=== PATIENT | female | born 1975 | race Caucasian/White ===

== ENCOUNTER 2019-03-14 09:26 | Emergency (ER) | payer OTHER ==
[2019-03-14] MEDS ORDERED: Ketorolac INJ* 30 MG/ML 1 ML VIAL IV PUSH ONE (09:50)
[2019-03-14] MEDS ORDERED: Dexamethasone IV* 4 MG/ML 1 ML (4 MG) IV SLOW PU ONE (09:50)
[2019-03-14] MEDS ORDERED: NS 0.9% 1000 ML** 1,000 ML IV ONE (09:51)
--- NOTE | 2019-03-14 09:52 | ED ---
Throat Pain/Nasal Congestion - HPI Summary HPI Summary: Patient is a 43-year-old female who presents emergency department for sore throat and fever 2 days. Patient notes nausea and ear patient pain. Pt. denies past medical history. Patient notes throat pain today is too great to speak. Patient states she is able to tolerate some liquids but it is very painful. Patient denies sick contacts. Symptoms are mild to moderate in severity. No current modifying factors. - History of Current Complaint Chief Complaint: EDThroatPain Time Seen by Provider: 03/14/19 09:38 Hx Obtained From: Patient - Allergies/Home Medications Allergies/Adverse Reactions: Allergies Allergy/AdvReac Type Severity Reaction Status Date / Time latex Allergy Airway Verified 03/14/19 09:52 Obstruction PMH/Surg Hx/FS Hx/Imm Hx Previously Healthy: Yes Infectious Disease History: No Infectious Disease History: Denies: Traveled Outside the [place] in Last 30 Days - Social History Alcohol Use: None Substance Use Type: Reports: None Smoking Status (MU): Never Smoked Tobacco Review of Systems Positive: Fever, Chills Eyes: Negative Positive: Sore Throat, Ear Ache Cardiovascular: Negative Respiratory: Negative Negative: Shortness Of Breath, Cough Positive: Nausea. Negative: Abdominal Pain, Vomiting, Diarrhea Genitourinary: Negative Skin: Negative Negative: Rash Neurological: Negative All Other Systems Reviewed And Are Negative: Yes Physical Exam Triage Information Reviewed: Yes Vital Signs On Initial Exam: Initial Vitals Temp Pulse Resp BP Pulse Ox 101.8 F 91 18 159/96 97 03/14/19 09:29 03/14/19 09:29 03/14/19 09:29 03/14/19 09:29 03/14/19 09:29 Vital Signs Reviewed: Yes Appearance: Positive: Well-Appearing - Pt. sitting up in bed in NAD. present. Skin: Positive: Warm, Dry Head/Face: Positive: Normal Head/Face Inspection Eyes: Positive: Normal, EOMI, [place] ENT: Positive: TMs normal, Other - Oral pharynx with marked edema, erythema or excudates bilaterally. Uvula is midline without displacement. No trismus. Pt. is whispering so cannot access for muffled voice. No pooling of secretions. Neck: Positive: Enlarged Nodes @ - bilateral cervical chains Respiratory/Lung Sounds: Positive: Clear to Auscultation, Breath Sounds Present Cardiovascular: Positive: Normal, RRR Musculoskeletal: Positive: Normal, Strength/ROM Intact Neurological: Positive: Normal, CN Intact II-III Psychiatric: Positive: Affect/Mood Appropriate Diagnostics - Vital Signs Vital Signs Temp Pulse Resp BP Pulse Ox 03/14/19 09:29 101.8 F 91 18 159/96 97 - Laboratory Result Diagrams: 03/14/19 10:12 03/14/19 10:12 Lab Statement: Any lab studies that have been ordered have been reviewed, and results considered in the medical decision making process. EENT Course/Dx - Course Course Of Treatment: Patient presenting with bilateral tonsillar edema with exudate. She does 101.8F. Vital signs are otherwise normal. Patient has no trismus or evidence of tonsillar abscess on exam. Patient given IV fluids, Decadron drawn and Toradol. Basic labs, strep and mono screen obtained. Labs are unremarkable including negative strep and mono. On reexamination patient states she is feeling much better and is tolerating by mouth fluids without difficulty. We'll treat for suspected bacterial pharyngitis with amoxicillin. Follow-up with the [facility] for recheck in 2-3 days. To continue ibuprofen for pain and swelling as directed. To return to the ER symptoms change or worsen. Patient understands and agrees with plan. - Differential Diagnoses Differential Diagnoses: Periodontic Abscess, Pharyngitis, Tonsilitis - Diagnoses Provider Diagnoses: Acute infective tonsillitis Discharge - Sign-Out/Discharge Documenting (check all that apply): Patient Departure Patient Received Moderate/Deep Sedation with Procedure: No - Discharge Plan Condition: Improved Disposition: HOME Prescriptions: Amoxicillin [Amoxicillin 250 MG/5 ML] 500 mg PO BID #200 susp.recon Magic Mouth Was-PETER/MAAL/LIDO* 5 ml SWISH SPIT QID #100 ml Patient Education Materials: Tonsillitis (ED) Referrals: [facility] [Outside] - 2 Days Additional Instructions: Schedule a follow up appointment with the [facility] Take medication as directed Motrin for pain and fever as directed Increase fluids Return to ER if symptoms change or worsen - Billing Disposition and Condition Condition: IMPROVED Disposition: Home
[2019-03-14 10:22] LABS: ABS Basophils 0.1 10^3/ul (0-0.2); ABS Lymphocytes 1.2 10^3/ul (1.0-4.8); ABS Monocytes 0.6 10^3/ul (0-0.8); ABS Neutrophils 8.8 10^3/ul (1.5-7.7); Eosinophil % 0.1 %; Hematocrit 35 % (35-47); Hemoglobin 11.7 g/dL (12.0-16.0); Lymphocyte % 11.5 %; Mean Corpuscular HGB Conc 33 g/dL (31-36); Mean Corpuscular Hemoglobin 27 pg (27-31); Mean Corpuscular Volume 81 fL (80-97); Platelet Count 211 10^3/uL (150-450); Red Cell Distribution Width 15 % (10-15); White Blood Count 10.6 10^3/uL (3.5-10.8)
[2019-03-14 10:33] LABS: Rapid Strep Molecular Negative (Negative)
[2019-03-14 10:40] LABS: Albumin 4.2 g/dL (3.2-5.2); Albumin/Globulin Ratio 1.5 (1-3); BUN/Creatinine Ratio 9.4 (8-20); Calcium 9.3 mg/dL (8.6-10.3); EGFR African American 87.9 (>60); EGFR Non-African American 72.7 (>60); Globulin 2.8 g/dL (2-4); Potassium 3.8 mmol/L (3.5-5.0); Total Bilirubin 0.3 mg/dL (0.2-1.0)
[2019-03-14 11:54] VITALS: BP 119/97
== END 2019-03-14 11:53 | disposition home or self-care (01) ==
LOC: ED 09:26
DX: J03.90 Acute tonsillitis, unspecified (principal); Z91.040 Latex allergy status
CPT/HCPCS: 36415; 80053; 85025; 86308; 87651; 96361; 96374; 96375; 99282; J1100; J1885